=== PATIENT | female | born 1960 | race Caucasian/White ===

== ENCOUNTER 2023-03-06 14:25 | Emergency (ER) | payer OTHER ==
[2023-03-06 14:57] LABS: Absolute Lymphocytes (CBC) 3.6 K/uL (0.7-4.9); Hematocrit 40.7 % (36.0-45.0); Lymphocytes % 45.6 % (15.3-44.8); MCV 93.1 fL (80-100); MPV 8.1 fL (7.6-11.3); Platelets 199 thou/uL (152-406); RBC Red Blood Cell Count 4.37 M/uL (3.86-4.86)
[2023-03-06] MEDS ORDERED: ASPIRIN 81 MG CHEWABLE TABLET ONE (15:09)
[2023-03-06] MEDS ORDERED: NA CHLORIDE 0.9% 1,000 ML ONE (15:09)
[2023-03-06 15:14] LABS: SARS-CoV-2 Antigen Rapid Res Negative (Negative)
[2023-03-06 15:16] LABS: ALT/SGPT 18 U/L (13-56); AST/SGOT 10 U/L (15-37); Albumin 3.5 g/dL (3.4-5.0); Alkaline Phosphatase 76 U/L (45-117); BUN Blood Urea Nitrogen 15 mg/dL (7-18); Bicarbonate 28 mEq/L (21-32); Bilirubin Total 0.4 mg/dL (0.2-1.0); Creatine Phosphokinase 54 U/L (26-192); Glomerular Filtration Rate 83 ml/min (=/>90); Glucose Level 94 mg/dL (74-106); Lipase 32 U/L (13-75); Magnesium 1.9 mg/dL (1.6-2.4); NT PRO-BNP 235 pg/mL (<125); Potassium 3.9 mEq/L (3.5-5.1); Protein, Total 7.2 g/dL (6.4-8.2); Sodium Level 139 mEq/L (136-145); Troponin High Sensitivity 4.8 pg/mL (<58.9)
[2023-03-06 15:18] LABS: Bilirubin Direct < 0.1 mg/dL (0-0.2); Bilirubin Indirect, Calculated ND mg/dL (0.2-0.8)
--- NOTE | 2023-03-06 15:21 | RAD REPORT ---
EXAM DESCRIPTION: Monica Single View03/06/2023 3:04 pm CLINICAL HISTORY: Chest pain COMPARISON: none FINDINGS: T lungs are mildly to moderately hyperaerated. He lungs appear clear of acute infiltrate. The heart is normal size IMPRESSION: No acute abnormalities displayed
--- NOTE | 2023-03-06 15:21 | RAD REPORT ---
EXAM DESCRIPTION: CT - Head Brain Wo Cont - 03/06/2023 2:54 pm CLINICAL HISTORY: Headache COMPARISON: none TECHNIQUE: Computed axial tomography of the head was obtained. IV contrast was not requested. All CT scans are performed using dose optimization technique as appropriate and may include automated exposure control or mA/KV adjustment according to patient size. FINDINGS: An intracranial bleed is not seen The ventricles are normal in caliber A few small nonspecific low-density areas within the white matter bilaterally. No extra-axial fluid collection is noted. Fluid within the sinuses/ mastoids is not seen IMPRESSION: No acute intracranial abnormality is seen If patient's symptoms persist MRI of the brain would be recommended
[2023-03-06 16:31] LABS: Specific Gravity < 1.005 (1.005-1.030); Urine Bilirubin NEGATIVE (Negative); Urine Blood Negative (Negative); Urine Clarity Clear (Clear); Urine Color Colorless (Yellow); Urine Glucose NEGATIVE (Negative); Urine Protein NEGATIVE (Negative); Urine Urobilinogen Normal (Normal); Urine pH 6.5 (5.0-7.0)
--- NOTE | 2023-03-06 16:44 | ER ---
Nurse's Notes [facility] [place] Name: Adilia Johnson Age: 62 yrs Sex: Female : 1960 Arrival Date: 03/06/2023 Time: 14:25 Bed 6 Private MD: Diagnosis: Chest pain, unspecified Presentation: 03/06 14:41 Chief complaint: Intermittent chest pain and SOB x 2 weeks, dizziness today. hb Coronavirus screen: At this time, the client does not indicate any symptoms associated with coronavirus-19. Ebola Screen: No symptoms or risks identified at this time. Initial Sepsis Screen: Does the patient meet any 2 criteria? No. Patient's initial sepsis screen is negative. Does the patient have a suspected source of infection? No. Patient's initial sepsis screen is negative. Risk Assessment: Do you want to hurt yourself or someone else? Patient reports no desire to harm self or others. Onset of symptoms was February 20, 2023. 14:41 Method Of Arrival: Wheelchair 14:41 Acuity: MARIA DOLORES 3 hb Triage Assessment: 15:21 Headache History: The patient has had previous headaches and this one is similar to mb9 previous episodes. 17:24 Pain: Also complains of no other associated symptoms. iw Historical: - Allergies: 14:42 Codeine; hb - PMHx: 14:42 CT; CVA; hb - PSHx: 14:42 Back; hb - Immunization history:: Adult Immunizations up to date. - Social history:: Smoking status: Patient reports the use of cigarette tobacco products, smokes one-half pack cigarettes per day. Screenin:20 [facility] ED Fall Risk Assessment (Adult) History of falling in the last 3 months, mb9 including since admission No falls in past 3 months (0 pts) Confusion or Disorientation No (0 pts) Intoxicated or Sedated No (0 pts) Impaired Gait No (0 pts) Mobility Assist Device Used No (0 pt) Altered Elimination No (0 pt) Score/Fall Risk Level 0 - 2 = Low Risk Oriented to surroundings, Maintained a safe environment, Educated pt \T\ family on fall prevention, incl call for assistance when getting out of bed. Abuse screen: Denies threats or abuse. Nutritional screening: No deficits noted. Tuberculosis screening: No symptoms or risk factors identified. Assessment: 15:15 General: Appears in no apparent distress. Behavior is calm, cooperative, appropriate mb9 for age. Pain: Complains of pain in chest Pain does not radiate. Pain currently is 8 out of 10 on a pain scale. Quality of pain is described as throbbing, Pain began suddenly, Is intermittent. Neuro: Ybarra Agitation-Sedation Scale (RASS): 0 - Alert and Calm Level of Consciousness is awake, alert, obeys commands, Oriented to person, place, time, situation, Appropriate for age. Cardiovascular: Heart tones S1 S2 present Patient's skin is warm and dry. Rhythm is regular. Cardiovascular: Reports chest pain. Respiratory: Reports shortness of breath. Respiratory: Airway is patent Respiratory effort is even, unlabored, Respiratory pattern is regular, symmetrical, Breath sounds with wheezes bilaterally. GI: Abdomen is round non-distended, Bowel sounds present X 4 quads. Abd is soft and non tender X 4 quads. Reports nausea. : No signs and/or symptoms were reported regarding the genitourinary system. EENT: No signs and/or symptoms were reported regarding the EENT system. Derm: Skin is pink, warm \T\ dry. Musculoskeletal: Range of motion: intact in all extremities. 16:20 Reassessment: No changes from previously documented assessment. Patient and/or family mb9 updated on plan of care and expected duration. Pain level reassessed. Patient is alert, oriented x 3, equal unlabored respirations, skin warm/dry/pink. Vital Signs: 14:41 BP 130 / 91; Pulse 80; Resp 16; Temp 97.8(O); Pulse Ox 100% on R/A; Weight 54.43 kg; hb Height 5 ft. 1 in. ; Pain 5/10; 15:30 BP 112 / 77; Pulse 71; Resp 16; Pulse Ox 98% on R/A; mb9 14:41 Body Mass Index 22.67 (54.43 kg, 154.94 cm) hb 14:41 Pain Scale: Adult hb ED Course: 14:29 Patient arrived in ED. mg5 14:30 Trupti Ambriz PA-C is PHCP. sb4 14:30 Ramiro Tilley MD is Attending Physician. sb4 14:42 Triage completed. hb 14:42 Zulay Guidry RN is Primary Nurse. mb9 14:42 Arm band placed on. mb9 14:55 Head Brain Wo Cont CT In Process Unspecified. EDMS 14:55 EKG done, by ED staff, reviewed by Trupti Ambriz PA-C. Inserted saline lock: 22 gauge in mb9 right forearm, using aseptic technique. 15:04 XRAY Chest (1 view) In Process Unspecified. EDMS 15:20 Placed in gown. Bed in low position. Call light in reach. Side rails up X 1. Client mb9 placed on continuous cardiac and pulse oximetry monitoring. NIBP monitoring applied. mechanical expert on. 15:55 Urinalysis w/ reflexes Sent. mb9 16:43 Andrés Anderson MD is Referral Physician. sb4 16:43 Norberto Merchant DO is Referral Physician. sb4 17:23 No provider procedures requiring assistance completed. IV discontinued, intact, iw bleeding controlled, No redness/swelling at site. Pressure dressing applied. Administered Medications: 14:50 Drug: Aspirin PO Chewable Tablet 324 mg Route: PO; mb9 15:55 Follow up: Response: No adverse reaction mb9 15:15 Drug: NS 0.9% IV 1000 ml Route: IV; Rate: 1 bolus; Site: right forearm; mb9 Medication: 15:21 VIS not applicable for this client. mb9 Outcome: 16:44 Discharge ordered by . sb4 17:23 Discharged to home via wheelchair, with family. iw 17:23 Condition: good 17:23 Discharge instructions given to patient, family, Instructed on discharge instructions, follow up and referral plans. Demonstrated understanding of instructions, follow-up care. 17:26 Patient left the ED. iw Signatures: Dispatcher [employer] EDMS Angélica Kendrick RN RN iw Baxter, Heather, RN Trupti Dougherty PA-C PA-C sb4 Breneman, Mary Beth RN RN mb9 Maryann Hartley mg5
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
[2023-03-06 17:40] VITALS: TEMP 97.8
[2023-03-06 17:45] VITALS: BP 112/77; O2SAT 98
--- NOTE | 2023-03-07 15:22 | EKG ---
Test Date: 2023-03-06 Test Time: 15:11:30 [employer] Agent: MB MEASUREMENT RESULTS: Intervals: Rate: 70 IL: 144 QRSD: 64 QT: 382 QTc: 412 [place]: P: 79 IL: 144 QRS: 70 T: 65 INTERPRETIVE STATEMENTS: Normal sinus rhythm Possible Left atrial enlargement Borderline ECG No previous ECG available for comparison Electronically Signed On 03-07-23 15:21:14 CDT by Andrés Anderson
== END 2023-03-06 17:26 | disposition home or self-care (01) ==
LOC: ER 14:25
DX: R07.89 Other chest pain (principal); R42 Dizziness and giddiness; R51.9 Headache, unspecified; F17.210 Nicotine dependence, cigarettes, uncomplicated; Z20.822 Contact with and (suspected) exposure to COVID-19; Z88.5 Allergy status to narcotic agent; Z86.73 Personal history of transient ischemic attack (TIA), and cerebral infarction without residual deficits
CPT/HCPCS: 93005; 85025; 80048; 36415; 83735; 82550; 85610; 80076; 81003; 84484; 83690; 83880; 87804 ×2; 70450; 71045; 99285; 87811; J7030